=== PATIENT | female | born 1940 | race Two or more races ===

== ENCOUNTER 2018-12-11 08:27 | Outpatient (CLI) | payer OTHER ==
[~2018-12-11 08:27] MED LIST: ASA81 MG PO; CADUET 5 MG/401 TAB PO; CADUET PO; DIOVAN160 M1 PO; EVISTA60 MG PO; LEVAQUIN500 MG PO; LOPRESSOR25 MG PO; NEXIUM40 MG/PACK PO; PLAVIX75 MG PO
== END 2018-12-11 08:35 | disposition home or self-care (01) ==
LOC: SONOGRAMA 08:27
DX: E04.2 Nontoxic multinodular goiter (principal)